=== PATIENT | male | born 1940 | race Two or more races ===

== ENCOUNTER 2018-12-20 03:09 | Emergency (ER) | payer MEDICARE ==
[~2018-12-20] VITALS: Ht 167.6 cm; Wt 65.3 kg
--- NOTE | 2018-12-20 03:28 | NUR ---
PT. CAME TO ER BIB [facility] FOR GROUND LEVEL FALL. PT STATES THAT HE WAS IN THE RESTROOM GOING TO URINATE IN THE MIDDLE OF THE NIGHT WHEN HE LOST BALANCE AND FELL TO THE GROUND. PT HAS CUTS ON BOTH ELBOWS, SWOLLEN RIGHT WRIST, AND A SLIGHTLY LONGER LEFT LEG. AAOX4. NO SOB. NOT IN ANY DISTRESS. CONNECTED TO MONITOR.
--- NOTE | 2018-12-20 04:45 | NUR ---
patient signed consent form
[2018-12-20] MEDS ORDERED: IV NS 0.9% 1,000 ML BAG IV ONE (05:00)
[2018-12-20] MEDS ORDERED: MORPHINE SULFATE INJ 2 MG/ML DISP.SYRIN IV ONE (05:00)
[2018-12-20] MEDS ORDERED: ONDANSETRON HCL/PF 4 MG/2 ML VIAL IVP ONE (05:00)
[2018-12-20] MEDS ORDERED: PROPOFOL 20 ML IV ONE ×2 (05:03→05:07)
--- NOTE | 2018-12-20 05:08 | NUR ---
RT and X-ray at bedside.
[2018-12-20 05:10] LABS: BASOPHILS # (AUTO) 0.1 /CMM (0.0-0.2); BASOPHILS % (AUTO) 0.7 % (0.0-2.0); EOSINOPHILS % (AUTO) 1.7 % (0.0-6.0); HEMATOCRIT 34 % (39-51); HEMOGLOBIN 11.7 g/dL (13.5-17.5); LYMPHOCYTES # (AUTO) 1.2 /CMM (0.8-4.8); LYMPHOCYTES % (AUTO) 10.3 % (20.0-44.0); MEAN CORPUSCULAR HGB CONC 34 g/dl (31.0-36.0); MEAN CORPUSCULAR VOLUME 97 fL (80-96); MONOCYTES % (AUTO) 8.9 % (2.0-12.0); NEUTROPHILS % (AUTO) 78.4 % (43.0-81.0); PLATELET COUNT (AUTO) 252 /CMM (150-450); RED BLOOD CELL COUNT(AUTO) 3.55 MIL/uL (4.5-6.0); WHITE BLOOD COUNT (AUTO) 11.5 K/uL (4.3-11.0)
--- NOTE | 2018-12-20 05:10 | NUR ---
100mg propofol given by
--- NOTE | 2018-12-20 05:18 | NUR ---
Xray at bedside for confirmation placement of right hip
--- NOTE | 2018-12-20 05:22 | NUR ---
pt awaken from procedure. O2 sats are at 100%. patient talking about procedure. patient states he "feels his hip and it feels warm and good". Leg lengths are even per assessment.
[2018-12-20 05:24] LABS: CALCIUM, SERUM 9.4 mg/dL (8.5-10.1); CARBON DIOXIDE 26 mmol/L (21-32); GLUCOSE 117 mg/dL (74-106)
[2018-12-20 05:28] LABS: CHLORIDE 101 mmol/L (98-107); SODIUM SERUM 140 mmol/L (136-145)
[2018-12-20 05:37] LABS: CREATININE 9.1 mg/dL (0.6-1.3); POTASSIUM 2.8 mmol/L (3.5-5.1); UREA NITROGEN, BLOOD 82 mg/dL (7-18)
[2018-12-20] MEDS ORDERED: POTASSIUM CL. PREMIX PERIPHER. 0 ML ONE (05:39)
--- NOTE | 2018-12-20 05:56 | NUR ---
IV removed. Catheter intact and site benign. Pressure and 4x4 applied to site. No bleeding noted. Patient discharged to home in stable condition. Written and verbal after care instructions given. Patient verbalizes understanding of instruction.
[2018-12-20] MEDS ORDERED: PROPOFOL 200 MG/20 ML VIAL IV ONE (06:00)
[2018-12-20 06:07] VITALS: BP 129/76
== END 2018-12-20 06:07 | disposition home or self-care (01) ==
LOC: ER 03:09
DX: T84.020A Dislocation of internal right hip prosthesis, initial encounter (principal); W18.39XA Other fall on same level, initial encounter; Y93.89 Activity, other specified; Y92.89 Other specified places as the place of occurrence of the external cause; Y99.8 Other external cause status; I10 Essential (primary) hypertension; Z96.643 Presence of artificial hip joint, bilateral
CPT/HCPCS: 27250; 36415; 73110; 73501; 73521; 80048; 85025; 85730; 93005; 99152; 99285; A6403; J2704 ×2; J7040; G0500; J3480

== ENCOUNTER 2019-10-14 12:52 | Emergency (ER) | payer MEDICARE, OTHER ==
[~2019-10-14] VITALS: Ht 167.6 cm; Wt 60.8 kg
--- NOTE | 2019-10-14 13:07 | NUR ---
BIB FAMILY FROM HOME, C/O R HIP PAIN X 2 HOURS WHILE TRYING TO PIVOT. TO ER BED 8, HOOKED TO BP CUFF AND POX, CHANGED TO HOSP GOWN, WARM BLANKET PROVIDED, PATIENT AAO x 3, BREATHING EVEN AND UNLABORED. DR CAMARGO AT BEDSIDE.
[2019-10-14] MEDS ORDERED: ERGO500040 PO (13:44)
[2019-10-14] MEDS ORDERED: CARV6.252 PO (13:44)
[2019-10-14] MEDS ORDERED: METO-357 PO (13:44)
[2019-10-14] MEDS ORDERED: ATOR10TA PO (13:44)
[2019-10-14] MEDS ORDERED: PROPOFOL 20 ML IV ONE (13:58)
[2019-10-14] MEDS ORDERED: IV NS 0.9% 500 ML BAG IV ONE (14:00)
[2019-10-14] MEDS ORDERED: PROPOFOL 200 MG/20 ML VIAL IV ONE (14:00)
--- NOTE | 2019-10-14 14:02 | NUR ---
DR CAMARGO AT BEDSIDE EXPLAINING PROCEDURE. PATIENT AGREED. PATIENT SIGNED CONSENT FOR CLOSED REDUCTION OF R HIP DISLOCATION UNDER MODERATE SEDATION AND ANESTHESIA CONSENT.
--- NOTE | 2019-10-14 14:11 | NUR ---
DR CAMARGO, RT, RN, TONE ARTIST APPRENTICE AT BEDSIDE FOR PROCEDURE.
--- NOTE | 2019-10-14 14:19 | NUR ---
R LEG ON KNEE IMMOBILIZER.
--- NOTE | 2019-10-14 14:23 | NUR ---
PATIENT AWAKE, AAO x 4, BREATHING EVEN AND UNLABORED, NAD NOTED.
--- NOTE | 2019-10-14 15:06 | NUR ---
PATIENT ASSISTED TO WAITING ROOM VIA WHEELCHAIR. SON WAITING AT WAITING ROOM
--- NOTE | 2019-10-14 15:06 | NUR ---
IV removed. Catheter intact and site benign. Pressure and 4x4 applied to site. No bleeding noted.Patient discharged to home in stable condition. Written and verbal after care instructions given. Patient verbalizes understanding of instruction.
[2019-10-14 15:29] VITALS: BP 162/87
== END 2019-10-14 15:07 | disposition home or self-care (01) ==
LOC: ER 13:01
DX: S73.014A Posterior dislocation of right hip, initial encounter (principal); I12.9 Hypertensive chronic kidney disease with stage 1 through stage 4 chronic kidney disease, or unspecified chronic kidney disease; N18.9 Chronic kidney disease, unspecified; Z96.643 Presence of artificial hip joint, bilateral; Z79.899 Other long term (current) drug therapy; W18.49XA Other slipping, tripping and stumbling without falling, initial encounter; Y93.89 Activity, other specified; Y92.89 Other specified places as the place of occurrence of the external cause; Y99.8 Other external cause status
CPT/HCPCS: 27250; 29505; 72170 ×2; 99152; 99285; J2704; J7040; G0500; J7030